=== PATIENT | male | born 2000 | race Caucasian/White ===

== ENCOUNTER → 2024-06-10 | Outpatient (CLI) | payer OTHER ==
--- NOTE | 2024-06-10 16:21 | XR ---
EXAMINATION TYPE: XR hand complete LT DATE OF EXAM: 06/10/2024 4:14 PM INDICATION: Patient age:Male; 24 years old; Reason for study: S61.402A UNSPECIFIED OPEN WOUND OF LEFT HAND, INIT; PHH. pain COMPARISON: None TECHNIQUE: Frontal, lateral and oblique views of the left hand were obtained. FINDINGS: Normal alignment of the visualized joints. No acute osseous pathology is identified. No e vidence of soft tissue swelling. There is a 1.5 mm radiopaque foreign body identified within the ulna r soft tissues of the hand lateral to the fifth metacarpal. IMPRESSION: 1. No acute osseous pathology. 2. There is a 1.5 mm radiopaque foreign body within the soft tissues of the hand lateral to the fift h metacarpal. [facility], , 06/10/2024 4:19 PM
== END | disposition home or self-care (01) ==
LOC: RADXRMAIN 15:51
PROVIDERS: ATTEND Emergency Medicine
DX: S61.402A Unspecified open wound of left hand, initial encounter (principal); M79.5 Residual foreign body in soft tissue; X58.XXXA Exposure to other specified factors, initial encounter